=== PATIENT | male | born 1945 | race Caucasian/White ===

== ENCOUNTER 2018-06-25 17:10 | Emergency (ER) | payer MEDICARE ==
[~2018-06-25] VITALS: Ht 177.8 cm; Wt 68.0 kg
[2018-06-25] MEDS ORDERED: CEPH500 PO (19:43)
== END 2018-06-25 19:48 | disposition home or self-care (01) ==
LOC: ER 17:10
DX: L03.213 Periorbital cellulitis (principal); Z85.46 Personal history of malignant neoplasm of prostate
CPT/HCPCS: 99283

== ENCOUNTER → 2018-08-24 | Outpatient (CLI) | payer MEDICARE ==
[~2018-08-24] MED LIST: CEPH500 PO
== END ==
LOC: LAB SHORT 09:57 → LAB UCHC 09:57 → EDSTATUS 08-22 09:55 → LAB FUT 08-22 09:55
DX: K29.70 Gastritis, unspecified, without bleeding (principal); B96.81 Helicobacter pylori [H. pylori] as the cause of diseases classified elsewhere
CPT/HCPCS: 87338

== ENCOUNTER → 2019-03-04 | Outpatient (CLI) | payer MEDICARE | END | disposition home or self-care (01) | LOC: LAB SHORT 18:22 → LAB 18:22 | DX: M10.9 Gout, unspecified (principal) | CPT/HCPCS: 84550 ==

== ENCOUNTER 2022-12-15 08:07 | Day surgery (SDC) | payer MEDICARE ==
[2022-12-15] VITALS (15 sets, daily range): BP systolic 106–148; BP diastolic 65–97
[~2022-12-15] VITALS: Ht 174 cm; Wt 73.7 kg
[~2022-12-15 08:07] MED LIST changes: +ATOR10 PO; +COLCHICINE0.6 MG PO; +FAMO20 PO; +GABA300 PO; +GLUC500 PO; +MELATONIN5 M1 PO; +MULVITA PO; +Prinivil10 MG PO
--- NOTE | 2022-12-15 08:46 | NUR ---
Ambulatory in Day Surgery. Pre-Op teaching done. Pt verbalizes understanding. Patient confirms NPO status and agrees with scheduled surgery. Patient States Post-Procedure ride home has been arranged. Lungs clear T/O to Auscultation. Patient states colon prep results light yellow, translucent.
--- NOTE | 2022-12-15 09:17 | NUR ---
12/15/22 0917 Muna Sims HISTORY, CHART, MEDICATIONS AND ALLERGIES REVIEWED BEFORE START OF PROCEDURE. PATIENT CONFIRMS NPO STATUS AND AGREES WITH SCHEDULED PROCEDURE. 3-LEAD EKG REVIEWED WITH PHYSICIAN PRIOR TO START OF PROCEDURE. MONITOR INTACT WITH CONTINUOUS PULSE OXIMETRY,CAPNOGRAPHY, 3-LEAD EKG, INTERMITTENT BP. SUPPLEMENTAL O2 TO BE TITRATED THROUGHOUT PROCEDURE TO MAINTAIN O2 SATURATION ABOVE 90%. PATIENT DETERMINED TO BE ASA APPROPRIATE FOR PROPOFOL SEDATION PRIOR TO START OF PROCEDURE BY .
--- NOTE | 2022-12-15 09:59 | NUR ---
DISCHARGE PT A&OX4, VSS/RA, TEZ PO, DENIES PAIN, DRESSED SELF, IV DC. DC INS PROVIDED. PT REP UNDERSTANDING THOSE INSTRUCTIONS. LEFT VIA WC WITH DC VOL TO GO HOME WITH JAH/DATA SUPPORT SPECIALIST, WITH DC INS AND ALL PERSONAL POSSESSIONS.
== END 2022-12-15 09:58 | disposition home or self-care (01) ==
LOC: ORSCMMR 08:07 → ORD 09:00 → ORSCMMR 09:00
PROVIDERS: Internal Medicine Gastroenterology
PROC: 0DBM8ZX Excision of Descending Colon, Via Natural or Artificial Opening Endoscopic, Diagnostic (ICD-10-PCS; principal; 2022-12-15 09:00)
DX: Z12.11 Encounter for screening for malignant neoplasm of colon (principal); K63.5 Polyp of colon; I10 Essential (primary) hypertension; E78.00 Pure hypercholesterolemia, unspecified; G62.9 Polyneuropathy, unspecified; K55.20 Angiodysplasia of colon without hemorrhage; Z79.899 Other long term (current) drug therapy
CPT/HCPCS: 88305; J2704; J7120

== ENCOUNTER → 2023-07-13 | Outpatient (CLI) | payer MEDICARE | LOC: LAB 16:40 → LAB SHORT 16:40 | DX: R31.9 Hematuria, unspecified (principal) | CPT/HCPCS: 87086 ==

== ENCOUNTER 2024-03-05 08:45 | Observation (INO) | payer MEDICARE, OTHER ==
[~2024-03-05] VITALS: Ht 172.7 cm; Wt 70.8 kg
[2024-03-05] VITALS (28 sets, daily range): BP systolic 90–136; BP diastolic 60–76
[~2024-03-05 08:45] MED LIST changes: +ASPIR 8181 M1 PO; +FERSU300 PO; +SILDENAFIL CIT100 MG PO; +TAMS.4ER PO; +TRAZ50 PO; +VIT C PO; +Zyloprim100 MG PO
[2024-03-05] MEDS ORDERED: NS 1,000 ML IV ONE ×5 (10:06→14:50)
[2024-03-05] MEDS ORDERED: NS 250 ML IV ONE ×2 (10:06→12:16)
[2024-03-05] MEDS ORDERED: Heparin Sodium 1000 Units/ML 10ML MDV ONE ×3 (10:06→14:02)
[2024-03-05] MEDS ORDERED: FentaNYL Citrate 50 MCG/ML 2 ML Injection ONE ×3 (10:33→13:01)
[2024-03-05] MEDS ORDERED: Midazolam HCl 1MG / ML 2ML Vial ONE ×3 (10:33→13:01)
[2024-03-05] MEDS ORDERED: Nitroglycerin 2 MG/20 ML BTL ONE (13:42)
[2024-03-05] MEDS ORDERED: Phenylephrine HCl 100 MCG/ML-NS 10MLSYR (1MG/10ML) ONE (14:00)
[2024-03-05] MEDS ORDERED: NS 500 ML IV ONE (14:01)
[2024-03-05 14:20] LABS: Hematocrit 34.6 % (37.0-53.0); Hemoglobin 11.6 g/dL (13.5-17.5)
[2024-03-05] MEDS ORDERED: Ondansetron HCl 2 MG / ML 2ML Vial ONE ×2 (14:33→14:56)
[2024-03-05] MEDS ORDERED: Lidocaine 2% Jelly Uro-Jet ONE (15:41)
[2024-03-05 16:16] LABS: Source, Urine Foley catheter
[2024-03-05 16:24] LABS: Appearance, Urine Clear (Clear); Bilirubin, Urine Neg (Neg); Blood, Urine Neg (Neg); Color, Urine Yellow (P-Yellow); Glucose Qualitative, Urine Neg (Neg); Ketones, Urine Neg (Neg); Leukocyte Esterase, Urine Neg (Neg); Nitrite, Urine Neg (Neg); Protein, Urine Neg (Neg); Urobilinogen, Urine NORM (Normal)
[2024-03-05] MEDS ORDERED: Ondansetron 4 MG TAB PO PRN (16:25)
[2024-03-05] MEDS ORDERED: Melatonin 3 MG Tab PO PRN (16:25)
[2024-03-05] MEDS ORDERED: Ondansetron HCl 2 MG / ML 2ML Vial IV PRN (16:25)
[2024-03-05] MEDS ORDERED: Prochlorperazine Edisylate 10 mg Vial IV PRN (16:25)
[2024-03-05] MEDS ORDERED: Magnesium Hydroxide Conc 10 ML UDC PO PRN (16:25)
[2024-03-05] MEDS ORDERED: Prochlorperazine Maleate 5 MG Tab PO PRN (16:30)
[2024-03-05] MEDS ORDERED: Ferrous Sulfate 325 MG Tab PO SCH (16:30)
[2024-03-05] MEDS ORDERED: Bisacodyl 10 MG Supp PR PRN (16:30)
[2024-03-05] MEDS ORDERED: NS 1,000 ML IV SCH (16:30)
[2024-03-05] MEDS ORDERED: Colchicine 0.6 MG TAB PO PRN (16:50)
--- NOTE | 2024-03-05 18:07 | NUR ---
SHIFT SUMMARY PT ARRIVED TO ICU 1 FROM [facility]. PT ALERT AND ORIENTED, ON RA. SB WITH RATE IN THE 50S, PT STATES THAT IS NORMAL FOR HIM. PRBC INFUSING UPON ARRIVAL. R GROIN SITE HAS A MODERATE SIZED HEMATOMA UPON ARRIVAL, BUT IT IS SOFT. FISH [facility]TER STAFF REPORTS THAT IS HOW THE SITE HAS BEEN. SMALL AMT OF BRUISING DOWN PT'S GROIN TO THE R SIDE OF HIS SCROTUM. R GROIN SITE IS TENDER WHEN PALPATED. L GROIN SITE IS SOFT AND NONTENDER. R PEDAL SITE IS WITHOUT SIGNS OF HEMATOMA. PEDAL PULSES FOUND VIA DOPPLER. PT EDUCATED EXTENSIVELY ON ACTIVITY RESTRICTIONS FOR THE NIGHT. PT'S WAS AT THE BEDSIDE AND UPDATED ON PLAN OF CARE.
--- NOTE | 2024-03-05 19:00 | NUR ---
ASSUMED CARE ASSUMED CARE OF PATIENT. PT LYING WITH HOB FLAT. PT IS AWARE OF MOVEMENT RESTRICTIONS. DENIES C/O PAIN AT THIS TIME. LEFT FEMORAL SITE WITH DRSG C/D/I, SITE IS SOFT. RIGHT FEMORAL SITE WITH DRSG INTACT. MODERATE HEMATOMA NOTED AT SITE AND BRUISING NOTED INTO SCROTUM. SITE IS TENDER WITH PALPATION. DRSG C/D/I TO RIGHT POSTERIOR TIBIAL SITE. BILATERAL PEDAL PULSES FOUND WITH DOPPLER. BILATERAL FEET ARE SLIGHTLY PALE AND COOL TO TOUCH. MONITOR SHOWS SB, RATE 50s. BP STABLE. RA SATS STABLE. DENIES C/O SOB/DYSPNEA. SEE SHIFT ASSESSMENT FOR FULL ASSESSMENT.
[2024-03-05 20:12] LABS: BASOPHILS ABSOLUTE AUTO 0.02 K/mm3 (0.00-0.23); BASOPHILS PERCENT AUTO 0 % (0-2); EOSINOPHILS ABSOLUTE AUTO 0.02 K/mm3 (0.00-0.68); EOSINOPHILS PERCENT AUTO 0 % (0-6); Hematocrit 40.6 % (37.0-53.0); Hemoglobin 13.6 g/dL (13.5-17.5); IMMATURE GRAN ABSOLUTE AUTO 0.07 K/mm3 (0.00-0.10); IMMATURE GRAN PERCENT AUTO 1 % (0-1); LYMPHOCYTES ABSOLUTE AUTO 0.67 K/mm3 (0.84-5.20); LYMPHOCYTES PERCENT AUTO 6 % (21-46); MONOCYTES ABSOLUTE AUTO 0.87 K/mm3 (0.16-1.47); MONOCYTES PERCENT AUTO 7 % (4-13); Mean Corpuscular HGB 30.4 pg (26.0-34.0); Mean Corpuscular HGB Conc 33.5 g/dL (31.5-36.5); Mean Corpuscular Volume 91 fL (80-100); Mean Platelet Volume 9.5 fL (9.1-12.4); NEUTROPHILS ABSOLUTE AUTO 10.59 K/mm3 (1.96-9.15); NEUTROPHILS PERCENT AUTO 86 % (41-73); Platelet Count 190 K/mm3 (150-400); RDW Coefficient Variation 14.5 % (11.7-14.2); RDW Standard Deviation 48.3 fL (35.1-46.3); Red Blood Cell Count 4.48 M/mm3 (4.30-5.90); White Blood Cell Count 12.24 K/mm3 (4.00-11.30)
[2024-03-05] MEDS ORDERED: DOPamine 400 MG/Dextrose 250 ML Bag IV ONE (20:32)
[2024-03-05] MEDS ORDERED: Docusate Sodium 100 MG Cap PO SCH (21:00)
[2024-03-05] MEDS ORDERED: Gabapentin 300 MG Cap PO SCH (21:00)
[2024-03-05] MEDS ORDERED: Tamsulosin HCl 0.4 MG Cap PO SCH (21:00)
[2024-03-05 22:45] LABS: Hematocrit 38.7 % (37.0-53.0)
[2024-03-05] MEDS ORDERED: Simethicone 80 MG Chew PO PRN (22:45)
[2024-03-06] VITALS (33 sets, daily range): BP systolic 91–129; BP diastolic 52–71
[2024-03-06 03:40] LABS: Hematocrit 37.3 % (37.0-53.0); Hemoglobin 12.7 g/dL (13.5-17.5); Mean Corpuscular HGB 30.5 pg (26.0-34.0); Mean Corpuscular Volume 89 fL (80-100); Mean Platelet Volume 9.5 fL (9.1-12.4); Platelet Count 190 K/mm3 (150-400); RDW Coefficient Variation 14.8 % (11.7-14.2); RDW Standard Deviation 48.6 fL (35.1-46.3); Red Blood Cell Count 4.17 M/mm3 (4.30-5.90); White Blood Cell Count 10.16 K/mm3 (4.00-11.30)
[2024-03-06 04:04] LABS: Bun/Creatinine Ratio 17.3 (12.0-20.0); Calcium, Blood 8.3 mg/dL (8.5-10.1); Creatinine, Blood 0.87 mg/dL (0.60-1.20); Potassium, Blood 4.3 mmol/L (3.5-5.5)
--- NOTE | 2024-03-06 05:53 | NUR ---
SHIFT SUMMARY NO ACUTE CHANGES DURING NOC. SLEPT INTERMITTENTLY. ROUSES EASILY TO STIMULI. VSS T/O NOC. MONITOR SHOWS SB-SR, RATE 50S-70s. RA SATS STABLE. RESPIRATIONS EVEN AND UNLABORED. DENIES SOB OR DYSPNEA. C/O MILD DISCOMFORT IN BACK FROM LYING FLAT IN BED- DENIES NEED FOR PAIN MED. C/O INTERMITTENT ABDOMINAL CRAMPING- ATTEMPTED TO USE BEDPAN WITHOUT SUCCESS. DENIES NAUSEA. TOLERATING DIET. CLOUD PATENT AND DRAINING YELLOW URINE. NS INFUSING AT 100MLS/HR PER ORDER. LEFT GROIN SITE SOFT, DRSG C/I. RIGHT GROIN SITE WITH SMALL AMOUNT OF SWELLING NOTED- SITE IS SOFT. DRSG D/I. BRUISING NOTED TO RIGHT GROIN AND TO SCROTUM. RIGHT POSTERIOR TIBIAL SITE WITH DRSG C/D/I. BILATERAL PEDAL PULSES WITH DOPPLER ONLY. RIGHT FOOT IS SLIGHTLY WARM AND PINK. LEFT FOOT IS COOL AND PALE. WILL REPORT TO ONCOMING RN WHEN AVAILABLE.
[2024-03-06] MEDS ORDERED: Famotidine 20 MG Tab PO SCH (06:00)
[2024-03-06] MEDS ORDERED: Lisinopril 10 MG Tab PO SCH (09:00)
[2024-03-06] MEDS ORDERED: Atorvastatin 10 MG Tab PO SCH (09:00)
[2024-03-06] MEDS ORDERED: Aspirin 81 MG TabEC PO SCH (09:00)
[2024-03-06] MEDS ORDERED: Allopurinol 100 MG Tab PO SCH (09:00)
[2024-03-06] MEDS ORDERED: Ferrous Sulfate 325 MG Tab PO SCH (09:00)
--- NOTE | 2024-03-06 11:20 | NUR ---
PT A/O X4. DENIES PAIN OR CP, DIZZINESS, AND SOB. OOB TO BATHROOM WITH MINIMAL ASSIST AFTER DR. ANDINO SAW PT THIS AM AND OK'D TO GET OOB. BILAT GROIN SITES STABLE AND POSTERIOR TIBIAL SITE JOSSIE C/D/I. DISCHARGE INSTRUCTIONS GONE OVER WITH PT AND . PT TAKEN OUT VIA W/C AND ASSISTED INTO CAR. NO SIGN OF DISTRESS.
== END 2024-03-06 11:48 | disposition home or self-care (01) ==
LOC: MHTC 08:45 → ICUE 14:18 → MHTC 19:31 → ICUE 19:35
PROVIDERS: Nurse Practitioner Acute Care; Radiology Diagnostic Radiology; Student in an Organized Health Care Education/Training Program; ADMIT Internal Medicine
DX: I97.418 Intraoperative hemorrhage and hematoma of a circulatory system organ or structure complicating other circulatory system procedure (principal); I73.9 Peripheral vascular disease, unspecified; M10.9 Gout, unspecified; I10 Essential (primary) hypertension; K21.9 Gastro-esophageal reflux disease without esophagitis; N40.0 Benign prostatic hyperplasia without lower urinary tract symptoms; E78.5 Hyperlipidemia, unspecified; D50.9 Iron deficiency anemia, unspecified; Z85.46 Personal history of malignant neoplasm of prostate; Z87.891 Personal history of nicotine dependence; Z91.048 Other nonmedicinal substance allergy status; Z88.8 Allergy status to other drugs, medicaments and biological substances; Z79.82 Long term (current) use of aspirin; Z79.899 Other long term (current) drug therapy
CPT/HCPCS: 36200; 36246; 36248; 36415; 36430; 37221; 37222; 37226; 75625; 75716; 75774; 76937; 80048; 81003; 85014; 85018; 85025; 85027; 86850; 86900; 86901; 86923; 99152; 99153; A9270; C1725; C1760; C1769; C1874; C1876; C1887; C1894; G0378; J1265; J1644; J2250; J2371; J2405; J3010; J7030; J7040; J7050; P9016; Q9967

== ENCOUNTER → 2024-04-17 | Outpatient (CLI) | payer MEDICARE ==
[2024-04-17 14:46] LABS: Stool Occult Blood Guaiac 1 Pos (Neg)
== END ==
LOC: LAB 10:55 → LAB SHORT 10:55
PROVIDERS: Physician Assistant
DX: K92.1 Melena (principal); Z87.11 Personal history of peptic ulcer disease
CPT/HCPCS: 82270

== ENCOUNTER 2024-04-29 06:11 | Day surgery (SDC) | payer MEDICARE ==
[~2024-04-29] VITALS: Ht 172.7 cm; Wt 68.3 kg
[2024-04-29] MEDS ORDERED: MAGCIT300 (06:41)
[2024-04-29] MEDS ORDERED: MIRALAX17 GM (06:42)
[2024-04-29] MEDS ORDERED: Lactated Ringer's 1,000 ML IV ONE ×2 (07:25→07:48)
[2024-04-29] MEDS ORDERED: propofoL 50 ML IV ONE (07:25)
[2024-04-29 09:02] VITALS: BP 115/71
== END 2024-04-29 09:05 | disposition home or self-care (01) ==
LOC: ORSCSDS 06:11
PROVIDERS: Internal Medicine Gastroenterology
PROC: 0DBL8ZX Excision of Transverse Colon, Via Natural or Artificial Opening Endoscopic, Diagnostic (ICD-10-PCS; principal; 2024-04-29 07:45)
PROC: 0DB68ZX Excision of Stomach, Via Natural or Artificial Opening Endoscopic, Diagnostic (ICD-10-PCS; principal; 2024-04-29 07:45)
PROC: 0DBN8ZX Excision of Sigmoid Colon, Via Natural or Artificial Opening Endoscopic, Diagnostic (ICD-10-PCS; principal; 2024-04-29 07:45)
DX: D50.9 Iron deficiency anemia, unspecified (principal); K26.9 Duodenal ulcer, unspecified as acute or chronic, without hemorrhage or perforation; R19.5 Other fecal abnormalities; D12.3 Benign neoplasm of transverse colon; D12.5 Benign neoplasm of sigmoid colon; K55.20 Angiodysplasia of colon without hemorrhage; Z86.0100 Personal history of colon polyps, unspecified; K57.30 Diverticulosis of large intestine without perforation or abscess without bleeding; I10 Essential (primary) hypertension; J44.9 Chronic obstructive pulmonary disease, unspecified; Z85.46 Personal history of malignant neoplasm of prostate; Z85.53 Personal history of malignant neoplasm of renal pelvis; Z79.02 Long term (current) use of antithrombotics/antiplatelets; Z79.899 Other long term (current) drug therapy; Z87.891 Personal history of nicotine dependence
CPT/HCPCS: 88305; J2704; J7120

== ENCOUNTER 2025-01-27 13:15 | Day surgery (SDC) | payer MEDICARE ==
[~2025-01-27] VITALS: Ht 172.7 cm; Wt 65.8 kg
[~2025-01-27 13:15] MED LIST changes: +Glycopyrrolate 0.2 MG/ML 1MLVIAL ONE; +MAGCIT300; +MIRALAX17 GM; +Ondansetron HCl 2 MG / ML 2ML Vial ONE; +ePHEDrine Sulfate 50 MG/ML 1ML Injection ONE
--- NOTE | 2025-01-27 15:08 | NUR ---
01/27/25 1508 Dulce Parker RED AND BLACK SCOPE USED ON UPPER AND LOWER ENDO. PURPLE ENDO CUFF APPLIED FOR COLONOSCOPY
[2025-01-27 15:25] VITALS: BP 116/78
== END 2025-01-27 15:26 | disposition home or self-care (01) ==
LOC: ORSCSDS 13:15
PROVIDERS: Internal Medicine Gastroenterology
PROC: 0D598ZZ Destruction of Duodenum, Via Natural or Artificial Opening Endoscopic (ICD-10-PCS; principal; 2025-01-27 14:45)
PROC: 0D5E8ZZ Destruction of Large Intestine, Via Natural or Artificial Opening Endoscopic (ICD-10-PCS; principal; 2025-01-27 14:45)
DX: K55.20 Angiodysplasia of colon without hemorrhage (principal); K31.819 Angiodysplasia of stomach and duodenum without bleeding; D50.9 Iron deficiency anemia, unspecified; Z86.0100 Personal history of colon polyps, unspecified; K92.1 Melena; J44.9 Chronic obstructive pulmonary disease, unspecified; I10 Essential (primary) hypertension; Z79.02 Long term (current) use of antithrombotics/antiplatelets; Z85.46 Personal history of malignant neoplasm of prostate; Z85.528 Personal history of other malignant neoplasm of kidney; Z87.891 Personal history of nicotine dependence
CPT/HCPCS: J0461; J2003; J2405; J2704; J7120

== ENCOUNTER 2025-02-11 10:02 | Emergency (ER) | payer MEDICARE ==
[~2025-02-11] VITALS: Ht 172.7 cm; Wt 69.8 kg
[~2025-02-11 10:02] MED LIST changes: -Glycopyrrolate 0.2 MG/ML 1MLVIAL ONE; -Ondansetron HCl 2 MG / ML 2ML Vial ONE; -ePHEDrine Sulfate 50 MG/ML 1ML Injection ONE
[2025-02-11 11:09] LABS: BASOPHILS ABSOLUTE AUTO 0.03 K/mm3 (0.00-0.23); BASOPHILS PERCENT AUTO 1 % (0-2); EOSINOPHILS ABSOLUTE AUTO 0.20 K/mm3 (0.00-0.68); EOSINOPHILS PERCENT AUTO 4 % (0-6); Hematocrit 35.7 % (37.0-53.0); Hemoglobin 11.7 g/dL (13.5-17.5); IMMATURE GRAN ABSOLUTE AUTO 0.02 K/mm3 (0.00-0.10); IMMATURE GRAN PERCENT AUTO 0 % (0-1); LYMPHOCYTES ABSOLUTE AUTO 0.92 K/mm3 (0.84-5.20); LYMPHOCYTES PERCENT AUTO 16 % (21-46); MONOCYTES ABSOLUTE AUTO 0.48 K/mm3 (0.16-1.47); MONOCYTES PERCENT AUTO 8 % (4-13); Mean Corpuscular HGB Conc 32.8 g/dL (31.5-36.5); Mean Corpuscular Volume 89 fL (80-100); NEUTROPHILS ABSOLUTE AUTO 4.14 K/mm3 (1.96-9.15); NEUTROPHILS PERCENT AUTO 72 % (41-73); NRBC ABSOLUTE 0.00 K/mm3 (0.00-0.02); NRBC Auto 0.0 /100 WBC (0.0-0.2); Platelet Count 294 K/mm3 (150-400); RDW Coefficient Variation 16.8 % (11.7-14.2); RDW Standard Deviation 55.6 fL (35.1-46.3)
[2025-02-11 11:42] LABS: Alanine Aminotransfer (ALT/SGP 29.0 U/L (12-78); Albumin, Blood 3.4 g/dL (3.4-5.0); Albumin/Globulin Ratio 0.9 (0.8-1.8); Anion Gap 7.0 mmol/L (3-11); Aspartate Aminotrans (AST/SGOT 16.0 U/L (12-37); Bilirubin, Total 0.3 mg/dL (0.1-1.0); Blood Urea Nitrogen 20.0 mg/dL (8-24); CO2, Blood 27.0 mmol/L (21-32); Calcium, Blood 8.7 mg/dL (8.5-10.1); Chloride, Blood 108.0 mmol/L (98-108); Creatinine, Blood 0.81 mg/dL (0.60-1.20); Globulin, Blood 3.7 g/dL (2.2-4.0); Glucose, Blood 95.0 mg/dL (70-99); Potassium, Blood 4.0 mmol/L (3.5-5.5); Sodium, Blood 138.0 mmol/L (136-145); Total Protein, Blood 7.1 g/dL (6.4-8.2)
[2025-02-11 12:15] VITALS: BP 141/81
== END 2025-02-11 12:28 | disposition home or self-care (01) ==
LOC: ER 10:02
PROVIDERS: Emergency Medicine
DX: K92.1 Melena (principal); D50.0 Iron deficiency anemia secondary to blood loss (chronic); I10 Essential (primary) hypertension; N40.0 Benign prostatic hyperplasia without lower urinary tract symptoms; E78.5 Hyperlipidemia, unspecified; Z85.528 Personal history of other malignant neoplasm of kidney; Z90.5 Acquired absence of kidney; Z91.09 Other allergy status, other than to drugs and biological substances; Z79.899 Other long term (current) drug therapy
CPT/HCPCS: 80053; 85025; 86850; 86900; 86901; 99284